=== PATIENT | male | born 1960 | race Caucasian/White ===

== ENCOUNTER 2017-11-29 09:00 | Inpatient (IN) | payer OTHER ==
[~2017-11-29 09:00] MED LIST: Buffered Lidocaine 0.9% SYRIN* 5 ML/SYR SYRINGE INTRADERM ONE; Famotidine IV* 10 MG/ML 2 ML (20 mg) IV ONE
[2017-11-29] MEDS ORDERED: Famotidine IV* 10 MG/ML 2 ML (20 mg) ONE (09:11)
[2017-11-29] MEDS ORDERED: ceFAZolin 2 GM PREMIX (*) 2 GM/50 ML BAG IVPB ONE (09:12)
[2017-11-29] MEDS ORDERED: Lidocaine 2% PF * 5 ML VIAL ONE ×2 (10:35→10:36)
[2017-11-29] MEDS ORDERED: fentaNYL* 50 MCG/ML 5 ML VIAL (250 MCG VIAL) ONE (10:35)
[2017-11-29] MEDS ORDERED: Phenylephrine INJ* 10 MG/ML 1 ML VIAL (10 MG) ONE ×3 (10:35→14:37)
[2017-11-29] MEDS ORDERED: Dexamethasone IV* 4 MG/ML 1 ML (4 MG) ONE (10:35)
[2017-11-29] MEDS ORDERED: Propofol* 10 MG/ML 20 ML BTL IV PUSH ONE ×2 (10:35→14:01)
[2017-11-29] MEDS ORDERED: Midazolam* 1 MG/ML 5 ML VIAL (5 MG) ONE (10:35)
[2017-11-29] MEDS ORDERED: Ondansetron ODT TAB* 4 MG ONE (10:35)
[2017-11-29] MEDS ORDERED: Rocuronium* 10 MG/ML VIAL ONE ×2 (10:35→14:25)
[2017-11-29] MEDS ORDERED: Artificial Tear OPHTH.OINT* 3.5 GM ONE (10:36)
[2017-11-29] MEDS ORDERED: HYDROmorphone INJ* 1 MG/ML CARPUJECT SYRINGE ONE (11:15)
[2017-11-29] MEDS ORDERED: Lidocaine 1% MPF wEPI 200,000* 30 ML SDV ONE (11:31)
[2017-11-29] MEDS ORDERED: Bacitracin IV* 50,000 UNITS INJ ONE (11:31)
[2017-11-29] MEDS ORDERED: Thrombin 5,000 UNITS* 1 APPLIC KIT - topical use - TOPICAL ONE (11:31)
[2017-11-29] MEDS ORDERED: HYDROmorphone INJ* 2 MG/ML CARPUJECT SYRINGE ONE ×2 (12:56→17:19)
[2017-11-29] MEDS ORDERED: ceFAZolin 1 GM in Dextrose (*) 1 GM/50 ML BAG IVPB ONE (12:57)
[2017-11-29] MEDS ORDERED: Neostigmine Methylsulfate* 1 MG/ML 10 ML VIAL (1 mg/ml) ONE (15:29)
[2017-11-29] MEDS ORDERED: Glycopyrrolate IV* 0.2 MG/ML 1 ML VIAL ONE (15:29)
[2017-11-29] MEDS ORDERED: fentaNYL* 50 MCG/ML 2 ML VIAL (100 MCG VIAL) ONE ×2 (15:35→16:14)
[2017-11-29] MEDS ORDERED: Ondansetron 40 MG VIAL* 2 MG/ML 20 ML VIAL IV PRN (15:40)
[2017-11-29] MEDS ORDERED: Acetaminophen TAB* 325 MG PO PRN (15:40)
[2017-11-29] MEDS ORDERED: Magnesium Hydroxide LIQ* 30 ML UDC PO PRN (15:40)
[2017-11-29] MEDS ORDERED: Morphine VIAL* 4 MG/ML VIAL (1 ml vial) IV PRN (15:49)
[2017-11-29] MEDS ORDERED: Ondansetron ODT TAB* 4 MG PO PRN (16:11)
[2017-11-29] MEDS ORDERED: HYDROmorphone INJ* 1 MG/ML CARPUJECT SYRINGE IV PRN (16:11)
[2017-11-29] MEDS ORDERED: Naloxone* 0.4 MG/ML 1 ML VIAL IV PRN (16:11)
[2017-11-29] MEDS: fentaNYL* 50 MCG/ML 2 ML VIAL (100 MCG VIAL) IV PRN ×2 (16:52→17:11)
[2017-11-29] MEDS: HYDROcodone/ACETAMIN 5-325 MG* 1 TAB PO PRN (20:10)
[2017-11-29] MEDS: Docusate CAP* 100 MG PO SCH (20:10)
--- NOTE | 2017-11-29 21:23 | RAD ---
Indication: Cervical decompression C5-C6. Single lateral view of the cervical spine demonstrates localization of C6 spinous process. IMPRESSION: C6 spinous process was localized.
[2017-11-29] MEDS ORDERED: Gabapentin CAP(*) 300 MG PO ONE (22:35)
[2017-11-30] MEDS: HYDROcodone/ACETAMIN 5-325 MG* 1 TAB PO PRN ×6 (01:02→22:19)
[2017-11-30] MEDS ORDERED: Gabapentin CAP(*) 300 MG PO ONE (06:00)
[2017-11-30] MEDS: Lisinopril TAB* 10 MG PO SCH (08:20)
[2017-11-30] MEDS: FLUoxetine CAP* 20 MG PO SCH (08:20)
[2017-11-30] MEDS: Baclofen TAB* 10 MG PO SCH (08:20)
[2017-11-30] MEDS: Omeprazole CAP* 20 MG PO SCH (08:20)
[2017-11-30] MEDS: Hydrochlorothiazide TAB* 25 MG PO SCH (08:20)
[2017-11-30] MEDS: Docusate CAP* 100 MG PO SCH ×2 (08:20→19:59)
--- NOTE | 2017-11-30 08:23 | PN ---
Progress Note - Progress Note Date of Service: 11/30/17 SOAP: Subjective: [S/p posterior cervical decompressive laminectomy C5-6, foraminotomy C6-7 left and C7-T1 left, POD #1. Feeling well this morning, incisional and posterior neck soreness. Pain well controlled. Ambulating independently. Eating and drinking without difficulty. Difficulty maintaining O2 sats post-op, history of ADITYA without CPAP. ] Objective: [ Vital Signs: Temp Pulse Resp BP Pulse Ox 99.3 F 87 12 133/72 100 11/30/17 03:13 11/30/17 03:13 11/30/17 06:42 11/30/17 03:13 11/30/17 06:42 General: Alert and without distress. Neuro: Motor and sensory normal. Incision: Wound drain not functioning well post-op. Fluid swelling of incision. Drain tube milked and functioning well now. Wound drain output 11/29/17 11/30/17 22:50 05:52 Output, JAY JAY #1 10 0 ] Assessment: [Satisfactory post-op course. Drain will require further monitoring.] Plan: [1. Admit to inpatient for further monitoring of wound drain. 2. Continue pain management. 3. Encourage ambulation and up out of bed. ]
[2017-11-30] MEDS ORDERED: Morphine INJ* 4 MG/ML 1 ML CARPUJECT IV ONE (08:32)
[2017-11-30] MEDS ORDERED: Morphine VIAL* 4 MG/ML VIAL (1 ml vial) IV ONE (09:00)
[2017-11-30] MEDS: Nicotine Lozenge* 4 MG LOZENGE MT PRN ×2 (14:10→19:40)
[2017-11-30] MEDS: Gabapentin CAP(*) 300 MG PO SCH (19:58)
[2017-12-01] MEDS: HYDROcodone/ACETAMIN 5-325 MG* 1 TAB PO PRN ×4 (02:48→13:18)
[2017-12-01] MEDS: Omeprazole CAP* 20 MG PO SCH (07:26)
[2017-12-01] MEDS ORDERED: Cyclobenzaprine TAB* 10 MG PO PRN (08:40)
--- NOTE | 2017-12-01 08:47 | PN ---
Progress Note - Progress Note Date of Service: 12/01/17 SOAP: Subjective: [S/p posterior cervical decompression C5-6, foraminotomy C6-7 left and C7-T1 left. POD #2. Pain not well controlled with Alloy; complains of posterior neck and baseline shoulder pain. Ambulating independently. Eager to go home.] Objective: [ Vital Signs: Temp Pulse Resp BP Pulse Ox 97.4 F 71 16 101/57 96 12/01/17 07:39 12/01/17 07:39 12/01/17 07:39 12/01/17 07:39 12/01/17 07:39 General: Alert and sitting up in chair. Neuro: Motor and sensory normal. Incision: Intact and without swelling. Wound drain in place and functioning well. Wound drain output 11/29/17 11/30/17 11/30/17 22:50 05:52 08:26 Output, JAY JAY #1 10 0 40 11/30/17 11/30/17 11/30/17 14:06 18:00 22:00 Output, JAY JAY #1 10 20 15 12/01/17 12/01/17 02:01 05:47 Output, JAY JAY #1 20 15 Assessment: [Satisfactory post-op course Wound drain requires further monitoring.] Plan: [1. Possible discharge home later today. 2. Continue to monitor wound drain. 3. Home morphine med not available here, morphine oral solution ordered. 4. Home cyclobenzaprine added.]
[2017-12-01] MEDS: Gabapentin CAP(*) 300 MG PO SCH (08:53)
[2017-12-01] MEDS: Docusate CAP* 100 MG PO SCH (08:53)
[2017-12-01] MEDS: Hydrochlorothiazide TAB* 25 MG PO SCH (08:54)
[2017-12-01] MEDS: Lisinopril TAB* 10 MG PO SCH (08:54)
[2017-12-01] MEDS: FLUoxetine CAP* 20 MG PO SCH (08:54)
[2017-12-01] MEDS: Baclofen TAB* 10 MG PO SCH (08:57)
[2017-12-01] MEDS: Nicotine Lozenge* 4 MG LOZENGE MT PRN ×2 (09:29→13:19)
[2017-12-01] MEDS ORDERED: Morphine ORAL.SOLN 10 mg* 2 MG/ML UDC 5 ml PO PRN (09:30)
[2017-12-01 15:23] VITALS: BP 102/56
[2017-12-01] MEDS ORDERED: oxyCODONE TAB* 5 MG TAB PO ONE (17:30)
== END 2017-12-01 16:00 | disposition home or self-care (01) | DRG 320 ==
LOC: OR 09:00 → SSU 18:10 → OBSVTOIN 11-30 08:23
PROVIDERS: ADMIT Neurological Surgery; ATTEND Neurological Surgery
PROC: 01N10ZZ Release Cervical Nerve, Open Approach (ICD-10-PCS; principal; 2017-11-30)
PROC: 01N80ZZ Release Thoracic Nerve, Open Approach (ICD-10-PCS; 2017-11-30)
DX: M47.22 Other spondylosis with radiculopathy, cervical region (principal); Z68.41 Body mass index [BMI] 40.0-44.9, adult; E66.9 Obesity, unspecified; I10 Essential (primary) hypertension; G47.33 Obstructive sleep apnea (adult) (pediatric); M75.101 Unspecified rotator cuff tear or rupture of right shoulder, not specified as traumatic; G89.29 Other chronic pain; Z87.891 Personal history of nicotine dependence
CPT/HCPCS: 36620; 72020; 94660; A9270-GY; J0690; J1100; J1170; J2001; J2250; J2270; J2704; J2710; J3010

== ENCOUNTER → 2017-12-21 12:10 | Day surgery (SDC) | payer OTHER ==
--- NOTE | 2017-12-12 03:57 | HP ---
PREOPERATIVE HISTORY AND PHYSICAL: DATE OF ADMISSION/SURGERY: 12/21/17 DATE OF OFFICE VISIT: 12/09/17 ATTENDING SURGEON: Dr. Jimbo Burt.* (DICTATED BY MARCO PHILLIPS) PROCEDURE: Right shoulder arthroscopic rotator cuff repair, decompression and debridement, subpectoral biceps tenodesis, possible open subscapularis repair. CHIEF COMPLAINT: Right shoulder. 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 He had significant injuries to his arm that caused a massive rotator cuff tear. He has failed conservative measures and has therefore agreed to undergo a right shoulder arthroscopic rotator cuff repair, decompression and debridement, subpectoral biceps tenodesis, and possible open subscapularis repair with Dr. Burt on 12/21/17. PAST MEDICAL HISTORY: Obesity, obstructive sleep apnea, spinal stenosis, cervical spondylitis, anxiety, high cholesterol, hypertension, impaired glucose tolerance. PAST SURGICAL HISTORY: Right knee scope, neck fusion, posterior cervical laminectomy, lumbar laminectomy. The patient denies prior complications with anesthesia. MEDICATIONS: 1. Lisinopril 20 mg 1 by mouth every day. 2. Nicorette 4 mg 1 every 6 hours as needed. 3. Prozac 20 mg every day. 4. Ativan 1 mg 1 by mouth daily as needed. 5. Cyclobenzaprine 10 mg 4 times a day. 6. Gabapentin 300 mg 1 twice a day. 7. Vitamin D3 daily. 8. Hydrochlorothiazide 25 mg once daily. 9. Baclofen 10 mg once daily. 10. Morphine sulfate 15 mg once daily. 11. Omeprazole 40 mg once daily. 12. Fluoxetine 40 mg once daily. ALLERGIES: No known drug allergies. FAMILY HISTORY: Positive for heart disease, breast cancer, and hypertension. Denies family history of DVT or PE. SOCIAL HISTORY: He is a construction trades contractor. He is a former smoker, quit 3 years ago. 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 He denies alcoholic consumption now. He denies current illegal drug use. He is right hand dominant. REVIEW OF SYSTEMS: A 14-point review of systems was reviewed with the patient, positive for current complaint, otherwise negative. Denies fevers, chills, chest pain, shortness of breath, history of bleeding disorder, history of DVT or PE, history of MRSA. PHYSICAL EXAMINATION GENERAL: A 57-year-old, well-developed, well-nourished male, in no acute distress. Alert and oriented x3. Appropriate mood and affect. Appropriate balance and coordination of the upper extremities. VITAL SIGNS: Height 70, weight 295, blood pressure 128/70, respiratory rate 20 , temperature 97.4, BMI 42.3. HEENT: Normocephalic, atraumatic. PERRLA. NECK: Supple. Throat clear. PULMONARY: Lungs are clear to auscultation bilaterally. No wheezes, rhonchi, or rales. CARDIAC: Regular rate and rhythm. S1 and S2. No murmurs, gallops, or rubs. No edema. ABDOMEN: Positive bowel sounds, soft, nontender. NEUROLOGIC: Alert and oriented x3. Cranial nerves grossly intact. Sensation intact to light touch. MUSCULOSKELETAL: Right upper extremity: Skin is intact. No evidence of erythema. Tenderness to palpation over the subacromial space and the bicipital groove. Active forward flexion to 45, passive to 170. Abduction to 45, external rotation to 25, internal rotation to lateral hip. +4/5 strength to rotator cuff testing with pain. Positive Helen's, Speed, impingement, Jones- Cheikh, [place]. +5/5 cardiac catheterization technologist strength. +2 radial pulse. Sensation intact to light touch distally. DIAGNOSIS STUDIES: Multiple x-rays and MRI of the right shoulder revealed massive tear of the supraspinatus and infraspinatus tendon with retraction and partial tear of the distal subscapularis tendon and subluxation of the proximal biceps tendon. IMPRESSION: Right shoulder massive rotator cuff tear and biceps tendinitis. PLAN/RECOMMENDATIONS: The patient is scheduled to undergo a right shoulder arthroscopic rotator cuff repair, decompression and debridement, subpectoral biceps tenodesis, and possible open subscapularis repair. He just had surgery with Dr. Hedrick. We will only go forward with the surgery if Dr. Hedrick clears him from a neurosurgery perspective. He states that he had his preop physical yesterday and we are awaiting confirmation of the PCP clearance. He will follow up in 10 to 14 days postop for followup and suture removal. [place] will be used on top of his chronic pain medication for postop pain management. FRANSISCA PARSON, [place] [id number]/[facility] #: [id number] ELLIS HOSPITALDiana
[~2017-12-21 12:10] MED LIST changes: +Acetaminophen IV 1GM/100ML * 1,000 MG/100 ML VIAL IVPB ONE; +Acetaminophen IV 1GM/100ML * 100 ML ONE; +Buffered Lidocaine 0.9% SYRIN* 5 ML/SYR SYRINGE ONE; +Dexamethasone IV* 4 MG/ML 1 ML (4 MG) IV SLOW PU ONE; +Dexamethasone IV* 4 MG/ML 1 ML (4 MG) ONE; -Famotidine IV* 10 MG/ML 2 ML (20 mg) IV ONE; +Lidocaine 2% PF * 5 ML VIAL ONE; +Midazolam* 1 MG/ML 2 ML VIAL (2 MG) ONE; +Propofol* 10 MG/ML 20 ML BTL IV PUSH ONE; +Sodium Citrate/Citric Acid* 15 ML UDC ONE; +Sodium Citrate/Citric Acid* 15 ML UDC PO ONE; +ceFAZolin 1 GM in Dextrose (*) 1 GM/50 ML BAG IVPB ONE; +ceFAZolin 2 GM PREMIX (*) 2 GM/50 ML BAG IVPB ONE; +fentaNYL* 50 MCG/ML 2 ML VIAL (100 MCG VIAL) ONE
[2017-12-21 13:08] VITALS: BP 99/70
== END | disposition home or self-care (01) ==
LOC: OR 12:10
PROVIDERS: ATTEND Orthopaedic Surgery
DX: M75.121 Complete rotator cuff tear or rupture of right shoulder, not specified as traumatic (principal); Z53.9 Procedure and treatment not carried out, unspecified reason; E66.9 Obesity, unspecified; G47.33 Obstructive sleep apnea (adult) (pediatric); I10 Essential (primary) hypertension; E78.00 Pure hypercholesterolemia, unspecified; R73.02 Impaired glucose tolerance (oral)
CPT/HCPCS: A9270-GY; J0690; J1100; J2250; J2704; J3010

== ENCOUNTER → 2017-12-26 09:39 | Day surgery (SDC) | payer OTHER ==
[~2017-12-26 09:39] MED LIST changes: +Acetaminophen TAB* 325 MG PO PRN; -Buffered Lidocaine 0.9% SYRIN* 5 ML/SYR SYRINGE ONE; +Bupivacaine 0.5% SDV PF* 30ML VIAL ONE; +Cisatracurium* 2 MG/ML MDV 5 ML ONE; -Dexamethasone IV* 4 MG/ML 1 ML (4 MG) IV SLOW PU ONE; +Famotidine IV* 10 MG/ML 2 ML (20 mg) ONE; +HYDROcodone/ACETAMIN 5-325 MG* 1 TAB ONE; +HYDROcodone/ACETAMIN 5-325 MG* 1 TAB PO PRN; +Hetastarch 6% in NS* 500 ML IV ONE; +Ketorolac INJ* 30 MG/ML 1 ML VIAL ONE; +Levalbuterol 0.63MG/3ML NEB* UNIT OF USE INH PRN; +Morphine INJ* 4 MG/ML 1 ML CARPUJECT IV ONE; +Morphine ORAL.SOLN 10 mg* 2 MG/ML UDC 5 ml PO ONE; +Nalbuphine* 10 MG/ML 1 ML VIAL IV PRN; +Naloxone* 0.4 MG/ML 1 ML VIAL IV PRN; +Ondansetron ODT TAB* 4 MG PO PRN; +PROCHLORPERAZINE INJ 5 MG/ML 2 ML VIAL IV PRN; +Phenylephrine INJ* 10 MG/ML 1 ML VIAL (10 MG) ONE; -Sodium Citrate/Citric Acid* 15 ML UDC ONE; -Sodium Citrate/Citric Acid* 15 ML UDC PO ONE; +Succinylcholine* 20 MG/ML 10 ML VIAL ONE; +diPHENhydraMINE IV* 50 MG/ML 1 ml VIAL (BENADRYL) IV PRN; +fentaNYL* 50 MCG/ML 2 ML VIAL (100 MCG VIAL) IV PRN
[2017-12-26] MEDS: fentaNYL* 50 MCG/ML 2 ML VIAL (100 MCG VIAL) IV PRN ×5 (15:03→16:21)
[2017-12-26] MEDS: Morphine INJ* 2 MG/ML 1 ML CARPUJECT IV PRN ×4 (15:19→16:05)
[2017-12-26 17:29] VITALS: BP 161/83
--- NOTE | 2017-12-27 11:38 | OP ---
OPERATIVE REPORT: DATE OF OPERATION: 12/26/17 - [facility] DATE OF : 60. SURGEON: Jimbo Burt MD. ANESTHESIOLOGIST: Dr. Lenz. ANESTHESIA: General. PRE-OP DIAGNOSES: Right shoulder massive tear of the supra and infraspinatus tendon as well as partial tear of subscapularis; biceps subluxation. POST-OP DIAGNOSES: Right shoulder massive tear of the supra and infraspinatus tendon as well as partial tear subscapularis; biceps subluxation as well as chondrosis of the glenohumeral joint. OPERATIVE PROCEDURE: 1. Right shoulder arthroscopy with extensive glenohumeral debridement. 2. Subacromial decompression with acromioplasty. 3. Rotator cuff repair in the supra and infraspinatus tendon with patch augmentation. 4. Subpectoral biceps tenodesis. IMPLANTS: One heavy Q-Fix 2.8 mm, 2 Healicoils and 2 Multifixes. COMPLICATIONS: None. ESTIMATED BLOOD LOSS: Minimal. INDICATIONS: Medhat Kelyl is a 57-year-old gentleman who has had pain and injury to his shoulder almost over a year ago perhaps 1-1/2 years ago. He then received a cortisone injection which helped for a while. In July 2017, he had another injury. He has had significant pain. He also had neck injury. He had a surgery by Dr. Hedrick, which was cervical decompression. He has difficulty sleeping. He has difficulty with overhead range of motion. He denies any numbness or tingling. He has failed conservative management. He had an MRI that demonstrated a massive tear of the supra or infraspinatus tendon with retraction as well as subluxation of the proximal biceps tendon. Risks and benefits of the surgery were discussed at length included, but are not limited to bleeding, infection, damage to nerves, vessels, surrounding structures, wound not healing, persistent pain, need for further surgery, scarring, stiffness, incomplete relief of symptoms, and risk of anesthesia. DESCRIPTION OF PROCEDURE: The patient was greeted in the preoperative area by the attending surgeon. Correct extremity was marked and consent was confirmed. The patient was brought back to the operating suite, was placed in supine position on the operating table. He then underwent general anesthesia and endotracheal intubation. The patient was then placed in the left lateral decubitus position with an axillary roll. All bony prominences were padded. He was secured with a pegboard. The right arm was draped unsterile with 10 pounds of traction. The right shoulder was then prepped and draped in the usual sterile fashion beginning with chlorhexidine soap scrub, alcohol wipe, and a final prep of ChloraPrep. After appropriate surgical pause indicating side, site, procedure, and administration of antibiotics, the standard posterolateral portal was made sharply with 11 blade. The scope was introduced into the joint, joint was examined. There were grade 2 changes to the humeral head and grade 1 to 2 changes to the glenoid. The biceps was obviously subluxed anteriorly. The subscap was difficult to identify. The anterior portal was made in an outside- in fashion. The shaver was used to debride back the anterior, posterior, and superior labrum as well as a small area of chondrosis on the humerus. The inferior recess was intact with synovitis. There was abundant synovitis. There was evidence of full thickness tear of the supra or infraspinatus tendon. The biceps was then tenotomized for later tenodesis. This had evidence of superior labral tearing, bicipital tendinosis and tendonitis. After this was excised, attention was directed to the subscap. Preoperatively, there were loose bodies that were evident anteriorly, this was embedded in the subscapular and left alone. The subscap had portions that were still intact. Approximately 15% potentially was torn, but there was enough fibers that were crossing, the decision was made to not repair this. Once the intraarticular work was complete, attention was directed to the subacromial space. The scope was positioned in the subacromial space. The lateral portal was made in an outside-in fashion. The shaver was used to debride the bursa that was present. The undersurface of the acromion had large, irregular undersurface spurs which was debrided back using a 4-0 oval nash. This was taken back all the way to the AC joint, which also had large undersurface spurs that could be damaging the cuff. The rotator cuff tear was identified and appeared only to be retracted the level of the humeral head cartilage. The cuff tissue was very thin; however, the soft tissues were carefully released on the bursal side and then bluntly also on the undersurface of the articular side to help mobilize the tendon. This tendon was carefully mobilized. This tear was the entire expanse of the supraspinatus as well as portion of the infraspinatus. Once the tendon was mobilized, the cuff was then reapproximated. Three Healicoils were placed, which had excellent purchase. The bone quality was okay, but a little bit softer than I would have expected in a 57- year-old. Sutures were passed in a horizontal mattress fashion to help reapproximate the tendon. They were then tied down sequentially using arthroscopic knot tying, one strand from each of the knot were then passed through a Multifix and passed through an anterolateral anchor, the other strands were passed through a posterolateral Multifix with excellent purchase. This helped reapproximate the tendon. Shoulder was taken through gentle range of motion, found to be intact. At this point, because of the nature of the tear and the potential possibility of it being almost a year old or more, a Regeneten size medium patch was chosen with the appropriate lila. This was then impacted into position with excellent purchase through separate cannulas. This alone added approximately 25 minutes to the case. The final images were obtained. The wounds were copiously irrigated. Attention was directed to the biceps. The biceps were prepped again. The anterior shoulder was prepped using the ChloraPrep. The anterior incision was made using a 15 blade. The soft tissue was carefully dissected to expose the fascia. The bicipital groove was palpated. The biceps was then brought through the wound. This was a very large biceps of significant tendinopathy. It was very challenging to pull through as well as to secure. The groove was then prepared in usual fashion and a 2.8 Q-Fix guide was then used to drill unicortically. Sutures were passed through the biceps in a Matteo-Roel type configuration, approximately 1 cm proximal to the musculotendinous junction. The excess stump was excised and biceps was shelved back into the wound and secured. The wounds were copiously irrigated with sterile saline. Sterile dressings were applied. A Cryo/Cuff and UltraSling were applied. He was awoken from anesthesia and transferred to PACU in stable condition. The portals were all injected with 0.25% Marcaine plain as well for pain control. POSTOPERATIVE PLAN: He will be nonweightbearing. He will be allowed elbow, hand, and wrist range of motion. He will be discharged on pain medications and antibiotics. I will see the patient back in approximately 14 days. [id number]/[facility] #: [id number] MTDDiana
== END | disposition home or self-care (01) ==
LOC: OR 09:39
PROVIDERS: ATTEND Orthopaedic Surgery
DX: M75.121 Complete rotator cuff tear or rupture of right shoulder, not specified as traumatic (principal); M75.21 Bicipital tendinitis, right shoulder; M93.911 Osteochondropathy, unspecified, right shoulder; G47.33 Obstructive sleep apnea (adult) (pediatric); Z87.891 Personal history of nicotine dependence; I10 Essential (primary) hypertension; M54.9 Dorsalgia, unspecified; M54.2 Cervicalgia; E66.9 Obesity, unspecified; Z68.41 Body mass index [BMI] 40.0-44.9, adult
CPT/HCPCS: A9270-GY; C1713; C1776; J0330; J0690; J1100; J1885; J2250; J2270; J2704; J3010

== ENCOUNTER 2018-05-01 14:16 | Day surgery (SDC) | payer OTHER ==
--- NOTE | 2018-04-28 15:25 | HP ---
AMENDED REPORT NOW INCLUDES COSIGNER DESIGNATION PREOPERATIVE HISTORY AND PHYSICAL: DATE OF ADMISSION/SURGERY: 05/01/18 - [facility] DATE OF OFFICE VISIT: 04/27/18 ATTENDING SURGEON: Dr. Jimbo Burt.* (DICTATED BY MARCO PHILLIPS) PROCEDURE: Right wrist carpal tunnel release. CHIEF COMPLAINT: Right hand. HISTORY OF PRESENT ILLNESS: Medhat is a 57-year-old male, who presents to the clinic 4 months status post right shoulder arthroscopy with decompression, debridement, and rotator cuff repair of a very large tear. He states his shoulder is doing well, but he continues to have numbness and tingling in the 1st, 2nd, 3rd and radial aspect of the 4th finger that is fairly constant. He has not improved with therapy and bracing; therefore, he has agreed to undergo a right wrist carpal tunnel release with Dr. Burt on 05/01/18. PAST MEDICAL HISTORY: Obesity, obstructive sleep apnea, spinal stenosis, cervical spondylitis, anxiety, high cholesterol, hypertension, impaired glucose tolerance. PAST SURGICAL HISTORY: Right knee scope, neck fusion with posterior cervical laminectomy, lumbar laminectomy, and right shoulder scope. The patient denies prior complications with anesthesia. MEDICATIONS: 1. Lisinopril 20 mg 1 by mouth every day. 2. Nicorette 4 mg 1 lozenge every 6 hours as needed. 3. Prozac 20 mg by mouth daily. 4. Ativan 1 mg by mouth as needed. 5. Cyclobenzaprine 10 mg 4 times a day. 6. Gabapentin 300 mg 1 by mouth twice a day. 7. Hydrochlorothiazide 25 mg 1 daily. 8. Baclofen 10 mg 1 daily. 9. Morphine sulfate 15 mg 1 daily. 10. Omeprazole 40 mg 1 daily. 11. Fluoxetine HCl 40 mg 1 daily. ALLERGIES: No known drug allergies. FAMILY HISTORY: Positive for heart disease, breast cancer, and hypertension. Denies family history of DVT or PE. SOCIAL HISTORY: He is a commercial construction superintendent. Former smoker, quit 3 years ago. Recovered alcoholic, last drink was 20 years ago. Denies current alcohol consumption. Denies illegal drug use. He is right-hand dominant. REVIEW OF SYSTEMS: A 14-point review of systems was reviewed with the patient. Positive for current complaint, otherwise negative. Denies fevers, chills, chest pain, shortness of breath, history of bleeding disorder, history of DVT or PE. PHYSICAL EXAMINATION GENERAL: A 57-year-old well-developed, well-nourished male, in no acute distress. Alert and oriented x3. Appropriate mood and affect. Appropriate balance and coordination of the upper extremities. VITAL SIGNS: Height 70, weight 295, blood pressure 134/66, respiratory rate 18 , BMI 24.3. HEENT: Normocephalic, atraumatic. PERRLA. Throat clear. NECK: Supple. PULMONARY: Lungs are clear to auscultation bilaterally. No wheezing, rhonchi, or rales. CARDIO: Regular rate and rhythm. S1, S2. No murmurs, gallops, or rubs. No edema. ABDOMEN: Positive bowel sounds. Soft, nontender. NEURO: Alert and oriented x3. Cranial nerves grossly intact. Sensation intact to light touch. MUSCULOSKELETAL: Right upper extremity: Skin is intact. Well-healed surgical incision. Forward flexion and abduction of shoulder to 165, external rotation to 55, internal rotation to lumbar spine. Full range of motion of the elbow, wrist, and hand. Decreased sensation over the 1st, 2nd, 3rd and radial aspect of the 4th digit. +2 radial pulse. Positive Tinel and Phalen at the wrist. Brisk cap refill. DIAGNOSTIC STUDIES: EMG of the right hand reveals carpal tunnel syndrome of the wrist and chronic APB denervation. ASSESSMENT: Right hand carpal tunnel syndrome. PLAN: The patient is scheduled to undergo a right wrist carpal tunnel release with Dr. Burt on 05/01/18. He will follow up 10 to 14 days postop for followup and suture removal. Oxycodone will be used for postop pain management. MARCO PHILLIPS [id number]/[facility] #: [id number] MONICA
[~2018-05-01 14:16] MED LIST changes: -Acetaminophen IV 1GM/100ML * 1,000 MG/100 ML VIAL IVPB ONE; -Acetaminophen IV 1GM/100ML * 100 ML ONE; -Acetaminophen TAB* 325 MG PO PRN; -Bupivacaine 0.5% SDV PF* 30ML VIAL ONE; -Cisatracurium* 2 MG/ML MDV 5 ML ONE; -Dexamethasone IV* 4 MG/ML 1 ML (4 MG) ONE; -Famotidine IV* 10 MG/ML 2 ML (20 mg) ONE; -HYDROcodone/ACETAMIN 5-325 MG* 1 TAB ONE; -HYDROcodone/ACETAMIN 5-325 MG* 1 TAB PO PRN; -Hetastarch 6% in NS* 500 ML IV ONE; -Ketorolac INJ* 30 MG/ML 1 ML VIAL ONE; -Levalbuterol 0.63MG/3ML NEB* UNIT OF USE INH PRN; -Lidocaine 2% PF * 5 ML VIAL ONE; -Midazolam* 1 MG/ML 2 ML VIAL (2 MG) ONE; -Morphine INJ* 4 MG/ML 1 ML CARPUJECT IV ONE; -Morphine ORAL.SOLN 10 mg* 2 MG/ML UDC 5 ml PO ONE; -Nalbuphine* 10 MG/ML 1 ML VIAL IV PRN; -Naloxone* 0.4 MG/ML 1 ML VIAL IV PRN; -Ondansetron ODT TAB* 4 MG PO PRN; -PROCHLORPERAZINE INJ 5 MG/ML 2 ML VIAL IV PRN; -Phenylephrine INJ* 10 MG/ML 1 ML VIAL (10 MG) ONE; -Propofol* 10 MG/ML 20 ML BTL IV PUSH ONE; -Succinylcholine* 20 MG/ML 10 ML VIAL ONE; -ceFAZolin 1 GM in Dextrose (*) 1 GM/50 ML BAG IVPB ONE; -ceFAZolin 2 GM PREMIX (*) 2 GM/50 ML BAG IVPB ONE; -diPHENhydraMINE IV* 50 MG/ML 1 ml VIAL (BENADRYL) IV PRN; -fentaNYL* 50 MCG/ML 2 ML VIAL (100 MCG VIAL) IV PRN; -fentaNYL* 50 MCG/ML 2 ML VIAL (100 MCG VIAL) ONE
[2018-05-01] MEDS ORDERED: Lidocaine 1% INJ* 10 MG/ML 30 ML SDV ONE (15:19)
[2018-05-01] MEDS ORDERED: Bupivacaine 0.25% SDV* 30 ML ONE (15:19)
[2018-05-01] MEDS ORDERED: Propofol* 10 MG/ML 20 ML BTL IV PUSH ONE ×2 (17:41→17:42)
[2018-05-01] MEDS ORDERED: Midazolam* 1 MG/ML 2 ML VIAL (2 MG) ONE (17:41)
[2018-05-01] MEDS ORDERED: Lidocaine 2% PF * 5 ML VIAL ONE (17:50)
[2018-05-01] MEDS ORDERED: Naloxone* 0.4 MG/ML 1 ML VIAL IV PRN (18:04)
[2018-05-01] MEDS ORDERED: Acetaminophen TAB* 325 MG PO PRN (18:04)
[2018-05-01] MEDS ORDERED: Ondansetron INJ* 2 MG/ML VIAL IV PRN (18:04)
[2018-05-01] MEDS ORDERED: Ketorolac INJ* 30 MG/ML 1 ML VIAL IV PRN (18:04)
[2018-05-01 18:26] VITALS: BP 125/79
--- NOTE | 2018-05-03 20:40 | OP ---
CC: PCP, Nevin Herrera NP * DATE OF OPERATION: 05/01/18 [facility] DATE OF : 60 ATTENDING SURGEON: Jimbo Burt MD UROGYNECOLOGY PHYSICIAN: None available. ANESTHESIA: Local with MAC. PRE-OP DIAGNOSIS: Right hand severe carpal tunnel syndrome. POST-OP DIAGNOSIS: Right hand severe carpal tunnel syndrome. OPERATIVE PROCEDURE: Open right carpal tunnel release. TOURNIQUET: 16 minutes. COMPLICATION: None. ESTIMATED BLOOD LOSS: Minimal. INDICATIONS: Medhat Kelly is a 57-year-old male who presents with severe right carpal tunnel syndrome refractory to conservative measures. He has elected to proceed with surgical treatment. Risks and benefits were discussed at length included, but not limited to bleeding, infection, damage to nerves, vessels, surrounding structures, wound nonhealing, persistent pain, need for further surgery, scarring, stiffness, incomplete relief of symptoms, risk of anesthesia. DESCRIPTION OF PROCEDURE: The patient was greeted in the preoperative area by the attending surgeon. The correct extremity was marked and consent was confirmed. The patient was brought back to the operative suite where he was placed in supine position on the operating table. He then underwent local MAC after which a miniature surgical pause was done, and then the carpal tunnel and the skin proximal were injected with 1% lidocaine without epi, approximately 10 cc. An unsterile tourniquet was placed on the proximal arm. The right arm was prepped and draped in the usual sterile fashion beginning with chlorhexidine soap scrub, alcohol wipe, and a ChloraPrep. After appropriate surgical pause indicating side, site, procedure, the limb was exsanguinated and the tourniquet was inflated to 250 mmHg. A #15 blade was used to make an incision at the intersection of Garcia cardinal line and radial border of the fourth ray ending at the wrist crease. Soft tissue was carefully dissected to expose the palmar fascia, which was then sharply incised. This helped to expose the carpal tunnel, which was very thick. This was then released using a #15 blade very carefully to go more ulnarly, first distal dissection was done with care to make sure that there was no evidence of compression. This was checked both proximally and distally with the help of retractors as well. Once the carpal ligaments were released as well as any fascia released distally, attention was directed to proximally. He had an accessory muscle belly that was proximal that was protected. The carpal tunnel was released just inferior to that in its entirety. There was significant thick carpal tunnel. This was then released in its entirety and checked. The wounds were then copiously irrigated with sterile saline. The incision was closed with 4-0 nylon in interrupted fashion. Sterile dressings were applied. The tourniquet was deflated for a total time of 16 minutes. The extremity was pink and well perfused. The wound was then injected with 0.25% Marcaine proximally 5 to 10 cc for pain control. Sterile dressings were applied. He was awoken from anesthesia and transferred to PACU in stable condition. POSTOPERATIVE PLAN: He will be allowed range of motion and have the bulky dressing on until Tuesday then where he can gentle range of motion. I will see the patient back in 10 to 14 days. [id number]/[facility] #: [id number] MTDD
== END 2018-05-01 18:43 | disposition home or self-care (01) ==
LOC: OREAST 14:16
PROVIDERS: ATTEND Orthopaedic Surgery
DX: G56.01 Carpal tunnel syndrome, right upper limb (principal); G47.33 Obstructive sleep apnea (adult) (pediatric); I10 Essential (primary) hypertension; E78.00 Pure hypercholesterolemia, unspecified; R73.02 Impaired glucose tolerance (oral); F41.9 Anxiety disorder, unspecified; E66.9 Obesity, unspecified
CPT/HCPCS: J2250; J2704

== ENCOUNTER 2020-03-18 08:37 | Observation (INO) ==
[~2020-03-18 08:37] MED LIST changes: -Buffered Lidocaine 0.9% SYRIN* 5 ML/SYR SYRINGE INTRADERM ONE; +Buffered Lidocaine 1% SYRIN 1 ml INTRADERM ONE; +Famotidine IV 10 MG/ML 2 ml VIAL (20 mg) IV ONE; +Lactated Ringers 1000 ml BAG 1,000 ML IV SCH
[2020-03-18] MEDS ORDERED: Famotidine IV 10 MG/ML 2 ml VIAL (20 mg) ONE (08:51)
[2020-03-18] MEDS ORDERED: ceFAZolin 1 GM ADVAN 1 GM ADDV.VIAL IVPB ONE (08:51)
[2020-03-18] MEDS ORDERED: ceFAZolin 2 GM PREMIX 2 GM/50 ML BAG ONE (08:51)
[2020-03-18] MEDS ORDERED: Midazolam 2 mg/2 ml VIAL 1 mg/ml 2 ml VIAL (2 mg) ONE (09:42)
[2020-03-18] MEDS ORDERED: fentaNYL 100 mcg/2 ml 50 MCG/ML VIAL ONE ×2 (09:42→12:01)
[2020-03-18] MEDS ORDERED: Bupivacaine 0.5% SDV PF 30ML VIAL ONE (10:30)
[2020-03-18] MEDS ORDERED: Lidocaine 1% w EPI 1:200,000 SDV 30 ML VIAL ONE (10:31)
[2020-03-18] MEDS ORDERED: Lidocaine 2% PF 5 ML VIAL ONE (11:04)
[2020-03-18] MEDS ORDERED: Dexamethasone IV 4 MG/ML VIAL 1 ml VIAL ONE (11:04)
[2020-03-18] MEDS ORDERED: Propofol 10 MG/ML 20 ML BTL ONE (11:04)
[2020-03-18] MEDS ORDERED: Ondansetron 4 mg VIAL 2 MG/ML 2 ml VIAL ONE (11:04)
[2020-03-18] MEDS ORDERED: Rocuronium 50 mg VIAL 10 mg/ml 5 ml VIAL (50 mg) ONE (11:04)
[2020-03-18] MEDS ORDERED: Acetaminophen IV 1 GM/100ML 100 ML ONE (11:04)
[2020-03-18] MEDS ORDERED: EPHEDrine (Pressors) 50 MG/ML VIAL ONE (11:14)
[2020-03-18] MEDS ORDERED: Dexmedetomidine 200 mcg/2 ml 2 ml VIAL (200 mcg) ONE (12:02)
[2020-03-18] MEDS ORDERED: Ondansetron 4 mg VIAL 2 MG/ML 2 ml VIAL IV PRN ×2 (12:27→13:52)
[2020-03-18] MEDS ORDERED: oxyCODONE/Acetamin 5/325 mg TAB PO PRN (12:27)
[2020-03-18] MEDS ORDERED: Naloxone 0.4 mg VIAL 0.4 mg/ml 1 ml VIAL IV PRN (12:27)
[2020-03-18] MEDS ORDERED: DiMENhydriNATE IV 50 mg/ml 1 ml VIAL IV PUSH PRN (12:27)
[2020-03-18] MEDS ORDERED: Magnesium Hydroxide LIQ 30 ML UDC PO PRN (13:52)
[2020-03-18] MEDS ORDERED: diPHENhydraMINE 25 mg TAB PO PRN (13:52)
[2020-03-18] MEDS ORDERED: Morphine 2 MG/ML SYRINGE IV PRN (13:52)
[2020-03-18] MEDS ORDERED: Lactulose 30 ml UDC PO PRN (13:52)
[2020-03-18] MEDS ORDERED: Ondansetron ODT 4 mg TAB 4 MG TAB PO PRN (13:52)
[2020-03-18] MEDS ORDERED: diPHENhydraMINE IV 50 MG/ML 1 ml VIAL (BENADRYL) IV PRN (13:52)
[2020-03-18] MEDS ORDERED: Lactated Ringers 1000 ml BAG 1,000 ML IV SCH (14:00)
[2020-03-18] MEDS ORDERED: HYDROmorphone 1 MG/1 ML SYRINGE ONE ×2 (14:07→14:27)
[2020-03-18] MEDS: HYDROmorphone 1 MG/1 ML SYRINGE IV PRN ×5 (14:10→14:50)
[2020-03-18] MEDS ORDERED: OXYCODONE ACETAMINOPHEN PO PRN (14:13)
[2020-03-18] MEDS: Magnesium Hydroxide LIQ 30 ML UDC PO SCH (20:35)
[2020-03-18] MEDS: ceFAZolin 1 GM ADVAN 1 GM in NS 0.9% 50 ML 50 ML IVPB SCH (20:35)
[2020-03-18] MEDS ORDERED: Nicotine GUM 4MG FRUIT FLAVOR PO PRN (21:00)
[2020-03-18] MEDS: [UNRECOGNIZED DRUG - OTHER] MT PRN (21:53)
[2020-03-19] MEDS: ceFAZolin 1 GM ADVAN 1 GM in NS 0.9% 50 ML 50 ML IVPB SCH ×2 (03:53→10:52)
[2020-03-19] MEDS: [UNRECOGNIZED DRUG - OTHER] MT PRN ×2 (06:09→10:23)
[2020-03-19 06:56] LABS: Hematocrit 32 % (42-52); Hemoglobin 11.1 g/dL (14.0-18.0); Mean Platelet Volume 8.1 fL (7.4-10.4); Platelet Count 188 10^3/uL (150-450)
[2020-03-19 07:13] LABS: BUN/Creatinine Ratio 16.5 (8-20); Calcium 8.5 mg/dL (8.6-10.3); EGFR African American 95.9 (>60); EGFR Non-African American 79.2 (>60); Potassium 4.1 mmol/L (3.5-5.0)
[2020-03-19] MEDS: Magnesium Hydroxide LIQ 30 ML UDC PO SCH (08:21)
[2020-03-19] MEDS ORDERED: Vitamin THERAPEUTIC TAB PO SCH (09:00)
[2020-03-19 11:21] VITALS: BP 114/50
== END 2020-03-19 12:10 | disposition home or self-care (01) ==
LOC: SSU 08:37 → OR 08:37
PROVIDERS: ADMIT Orthopaedic Surgery; ATTEND Orthopaedic Surgery